=== PATIENT | male | born 1955 | race Caucasian/White ===

== ENCOUNTER 2025-05-07 15:38 | Outpatient (CLI) | payer MEDICARE ==
[~2025-05-07] VITALS: Ht 172.7 cm; Wt 52.2 kg
[2025-05-07 16:15] LABS: ABG BASE EXCESS -3.1 mmol/L (-2.0-3.0); ABG HCO3 19.3 mmol/L (21.0-28.0); ABG OXYGEN SATURATION 93.0 % (94.0-98.0); ABG PCO2 (T) 28.6 mmHg (35.0-48.0); ABG PH (T) 7.446 (7.350-7.450); ABG PO2 (T) 70.2 mmHg (83.0-108.0); FCOHb 3.2 % (0.5-1.5); FHHb 6.8 % (0.0-5.0); FIO2 21.0 mmHg/%; FMetHb 0.1 % (0.0-1.5); FO2Hb 89.9 % (94.0-98.0); MODE ROOM AIR; PATIENT TEMPERATURE 37.0; TOTAL HEMOGLOBIN 17.5 G/dl (13.5-17.5)
[2025-05-07] MEDS: albuterol 2.5 MG/3 ML nebule NEB ONE (16:56)
[2025-05-07 16:58] VITALS: PULSE 90; RESP 14; O2SAT 91
[2025-05-07 17:10] VITALS: PULSE 81; RESP 15
--- NOTE | 2025-05-08 15:23 | PROCEDURE NOTE - Respiratory ---
Procedure Note-Respiratory Providers to CC Copies To 1: TOYA STAFFORD MD Procedure Name: This is a complete pulmonary function study dated May 07, 2025. Hemoglobin measurement was done as part of the study. A room air blood gas was also obtained from this patient on the same date. Spirometry measurements: There is significant reduction in both the forced vital capacity and the FEV1 measurements. The FEV1 ratio is also significantly reduced. All of the measured flow rates show substantial reduction. After inhaled bronchodilator was administered some of the flow rates show very minimal improvement. Lung volume measurements: All of the major lung volume determinations are within normal limits. Lung diffusion measurement: The DLCO measurement is quite low. It is noted that both the KVO measurement and the alveolar volume measurements are significantly decreased. The hemoglobin measurement is within normal limits. Airway resistance measurement: The airway resistance is normal. Overall conclusion: This study shows severe abnormality. There is evidence for severe obstructive ventilatory defect which is only very minimally responsive to inhaled bronchodilator. The lung diffusion capacity is significantly depressed. 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 It is recommended that the patient abstain from cigarette smoking. Bronchodilator therapy may very well help this patient. We have no previous studies for comparison. A blood gas was drawn from this patient while the patient was breathing ambient air. The blood pH is normal. The pCO2 is reduced. These numbers indicate a chronic respiratory alkalosis which has been compensated for by renal bicarb excretion. The room air PO2 is reduced at 70 mmHg. It is noted that the patient shows 3.2% of the hemoglobin molecules bound with carbon monoxide. This is likely related to the patient's ongoing cigarette smoking. QING ESPAÑA MD May 08, 2025 15:23
[2025-05-16] MEDS ORDERED: FURO-150 PO (02:08)
[2025-05-16] MEDS ORDERED: UNABLE TO OBTAIN (15:05)
== END 2025-05-07 23:59 | disposition home or self-care (01) ==
LOC: RT 15:38
PROVIDERS: ATTEND Internal Medicine Cardiovascular Disease
DX: J44.9 Chronic obstructive pulmonary disease, unspecified (principal); R06.02 Shortness of breath
CPT/HCPCS: 36600; 82803; 85018; 94060; 94727; 94729; 94760